=== PATIENT | male | born 1980 | race Caucasian/White ===

== ENCOUNTER 2016-08-27 09:07 | Emergency (ER) | payer BC ==
[2016-08-27 09:23] VITALS: BP 134/62; PULSE 74; RESP 20; TEMP 97.9
--- NOTE | 2016-08-27 09:34 | ED ---
Upper Extremity HPI - General Chief Complaint: Extremity Injury, Upper Stated Complaint: finger pain swelling Time Seen by Provider: 08/27/16 09:24 Source: patient, RN notes reviewed Mode of arrival: ambulatory Limitations: no limitations - History of Present Illness Initial Comments: 35-year-old male presents emergency Department with chief complaint of right hand fourth digit pain. Patient states that it was sensitive yesterday worse todayof swelling around his nail. He states is slightly red. Patient denies any trauma no injury noted. Patient states tetanus is up-to-date. Patient offers no complaints. - Related Data Home Medications Medication Instructions Recorded Confirmed Dextroamphetamine/Amphetamine 15 mg PO BID 08/10/13 06/24/15 [Adderall] Previous Rx's Medication Instructions Recorded Azithromycin [Zithromax] 500 mg PO DAILY #5 tab 06/24/15 methylPREDNISolone [Medrol Dose 4 mg PO DIRECTED #1 pack 06/24/15 Pack] Allergies Allergy/AdvReac Type Severity Reaction Status Date / Time Penicillins Allergy Anaphylaxis Verified 08/27/16 09:23 Review of Systems ROS Statement: Those systems with pertinent positive or pertinent negative responses have been documented in the HPI. ROS Other: All systems not noted in ROS Statement are negative. Past Medical History Past Medical History: GI Bleed History of Any Multi-Drug Resistant Organisms: None Reported Past Surgical History: No Surgical Hx Reported Past Anesthesia/Blood Transfusion Reactions: No Reported Reaction Past Psychological History: No Psychological Hx Reported Smoking Status: Never smoker Past Alcohol Use History: None Reported Past Drug Use History: None Reported General Exam Limitations: no limitations General appearance: alert, in no apparent distress Head exam: Present: atraumatic, normocephalic, normal inspection Respiratory exam: Present: normal lung sounds bilaterally. Absent: respiratory distress, wheezes, rales, rhonchi, stridor Cardiovascular Exam: Present: regular rate, normal rhythm, normal heart sounds. Absent: systolic murmur, diastolic murmur, rubs, gallop, clicks Extremities exam: Present: other (Right hand fourth digit there is some erythema , swelling no tenderness with palpation) Neurological exam: Present: alert Skin exam: Present: warm, dry Course Vital Signs 08/27/16 09:20 Temperature 97.9 F Pulse Rate 74 Respiratory 20 Rate Blood Pressure 134/62 O2 Sat by Pulse 100 Oximetry Medical Decision Making - Medical Decision Making 35-year-old male presents emergency department for finger pain. Patient has early paronychia. Patient was started on Keflex at this time we did discuss warm soaks, return parameters. Disposition Clinical Impression: Paronychia Disposition: HOME SELF-CARE Condition: Stable Instructions: Paronychia (ED) Additional Instructions: Please return to the Emergency Department if symptoms worsen or any other concerns. Referrals: Dada Glover MD [Primary Care Provider] - 1-2 days Time of Disposition: 09:34
== END 2016-08-27 09:48 | disposition home or self-care (01) ==
LOC: EC 09:07
DX: L03.011 Cellulitis of right finger (principal); Z88.0 Allergy status to penicillin; Z79.899 Other long term (current) drug therapy
CPT/HCPCS: 99283

== ENCOUNTER → 2021-09-24 | Outpatient (CLI) | payer BC ==
[2021-09-24 14:57] LABS: Basophils # (A) 0.01 X 10*3/uL (0.00-0.10); Basophils % (A) 0.2 %; Eosinophils # (A) 0.18 X 10*3/uL (0.04-0.35); Eosinophils % (A) 4.1 %; HCT 45.1 % (39.6-50.0); HGB 14.2 g/dL (13.0-17.0); Immature Grans, Automated 0.2 %; Lymphocytes # (A) 1.75 X 10*3/uL (0.90-5.00); Lymphocytes % (A) 39.6 %; MCH 28.8 pg (27.0-32.0); MCHC 31.5 g/dL (32.0-37.0); MCV 91.5 fL (80.0-97.0); Mean Platelet Volume 10.5 fL (9.5-12.2); Monocytes # (A) 0.54 X 10*3/uL (0.20-1.00); Monocytes % (A) 12.2 %; NRBC Per 100 WBC 0 /100 WBCS (0.0-0.0); Neutrophils # (A) 1.93 X 10*3/uL (1.80-7.70); Neutrophils % (A) 43.7 %; Platelet Count 209 X 10*3/uL (140-440); RBC 4.93 X 10*6/uL (4.40-5.60); WBC 4.42 X 10*3/uL (4.50-10.00)
[2021-09-24 16:28] LABS: ALT 23 U/L (10-49); AST 18 U/L (14-35); African American GFR (CKD) 129.5 (60.0-200.0); Albumin 4.4 g/dL (3.8-4.9); Alkaline Phosphatase 78 U/L (41-126); BUN/Creat Ratio 27.25 Ratio (12.00-20.00); Blood Urea Nitrogen 21.8 mg/dL (9.0-27.0); Calcium 9.1 mg/dL (8.7-10.3); Carbon Dioxide 23.4 mmol/L (20.0-27.5); Chloride 108 mmol/L (96-109); Chol/HDL Ratio 3.29 Ratio; Glucose 85 mg/dL (70-110); LDL Cholesterol,Calculated 80.1 mg/dL (0.0-131.0); Non-African American GFR(CKD) 111.7 (60.0-200.0); Potassium 4.7 mmol/L (3.5-5.5); Sodium 140 mmol/L (135-145); Total Protein 6.4 g/dL (6.2-8.2)
== END | disposition home or self-care (01) ==
LOC: LABWHC1 08:51
PROVIDERS: ATTEND Family Medicine
DX: Z00.00 Encounter for general adult medical examination without abnormal findings (principal)
CPT/HCPCS: 36415; 80053; 80061; 85025